=== PATIENT | male | born 1995 | race Caucasian/White ===

== ENCOUNTER 2017-12-14 14:13 | Emergency (ER) | payer MEDICAID, OTHER ==
[~2017-12-14] VITALS: Ht 193 cm; Wt 77.1 kg
[2017-12-14 14:55] VITALS: BP 114/62
== END 2017-12-14 15:21 | disposition home or self-care (01) ==
LOC: ER 14:17
DX: H10.9 Unspecified conjunctivitis (principal); F17.200 Nicotine dependence, unspecified, uncomplicated